=== PATIENT | female | born 1935 | race Caucasian/White ===

== ENCOUNTER 2016-10-07 22:28 | Emergency (ER) | payer MEDICARE ==
[2016-10-08] MEDS ORDERED: ONDANSETRON 4 MG ODT TAB ONE (00:29)
[2016-10-08] MEDS ORDERED: NAPROXEN 250 MG TABLET ONE (00:29)
[2016-10-08] MEDS ORDERED: HYDROCODONE/ACETAMINOPHEN 5/325MG TABLET ONE (00:29)
--- NOTE | 2016-10-08 08:16 | RAD ---
10/08/2016 8:11 AM ANKLE-LEFT 3 VIEW, FOOT LEFT 3 VIEWS History: Pain, recent treatment for gout. No known trauma. Technique: 3 view Ankle Side:Left Comparison: None Findings: Bones: No fracture or dislocation. 8 mm heel spur. Mild degenerative changes of the midfoot. Joints: The ankle mortise is normally aligned. Joints:Remaining joints are unremarkable. Associated Findings: Soft tissue swelling is noted about the bilateral malleoli. Impression: 1. No fracture or dislocation. Other incidental findings as above. HISTORY: Pain, no known trauma. Recent treatment for gout. COMPARISON: None TECHNIQUE:Three views Foot Laterality:Left FINDINGS: Bones: Overhanging edge is identified along the medial aspect of the first metatarsal head at the MTP joint. No fracture or dislocation. Moderate hallux valgus deformity. 8 mm heel spur. Degenerative spurring of the midfoot. Joints: Moderate joint space loss at the first MTP joint. Soft tissue: Soft tissue swelling is identified along the region of the hallux valgus deformity, with calcification compatible with the patient's known history of gout. Probable chondrocalcinosis is also present in the first MTP joint. IMPRESSION: Findings of gout with moderate hallux valgus deformity as above. No fracture or dislocation.
== END 2016-10-08 01:50 | disposition home or self-care (01) ==
LOC: ED 22:28
DX: M79.672 Pain in left foot (principal); M79.605 Pain in left leg; M10.9 Gout, unspecified; I10 Essential (primary) hypertension; E11.9 Type 2 diabetes mellitus without complications
CPT/HCPCS: 73610; 73630; 99284; 99283; A9270 ×3